=== PATIENT | female | born 1960 | race Caucasian/White ===

== ENCOUNTER 2019-09-11 14:13 | Outpatient (CLI) | payer BC, SELFPAY ==
--- NOTE | ~2019-09-11 | MM_ITS ---
EXAMINATION: MM screening [facility] BI w pb HISTORY: Screening mammogram TECHNIQUE: Craniocaudal and mediolateral oblique 3-D tomosynthesis images were obtained and synthetic 2-D images were generated. CAD analysis was submitted and interpreted. COMPARISON: 09/02/2018, 08/31/2017, 08/29/2016 BREAST PARENCHYMAL COMPOSITION: There are scattered areas of fibroglandular density. FINDINGS: There is no evidence of suspicious mass, calcification, or architectural distortion to sugg est malignancy in either breast. There has been no suspicious interval change. IMPRESSION: 1. No mammographic evidence of malignancy. 2. Recommend routine screening mammography in one year. BI-RADS Category 1: Negative Reviewed, dictated and finalized at location A. THOUSE KEEPER
== END 2019-09-11 14:14 | disposition home or self-care (01) ==
LOC: ANHIMG 14:15
PROVIDERS: PCP Family Medicine; Visit Provider Obstetrics & Gynecology
DX: Z12.31 Encounter for screening mammogram for malignant neoplasm of breast (principal)
CPT/HCPCS: 77063; 77067

== ENCOUNTER → 2020-06-10 13:26 | Outpatient (CLI) | payer BC, SELFPAY ==
--- NOTE | ~2020-06-10 | XR_ITS ---
EXAMINATION: XR chest 2V EXAM DATE: 06/10/2020 13:41 INDICATION: Midsternal chest pain. TECHNIQUE: Frontal and lateral projections of the chest obtained and reviewed. Comparison is made to prior examination from 05/25/2019. FINDINGS: The lungs are clear. There are no pleural effusions. The cardiomediastinal silhouette is within normal limits. There is no pneumothorax suspected. Moderate-sized mid thoracic endplate oste ophytes. There is aortic arteriosclerosis. IMPRESSION: No acute cardiopulmonary findings. Reviewed, dictated and finalized at location A. CH ANALYST
== END ==
PROVIDERS: PCP Family Medicine; Visit Provider Physician Assistant
DX: R07.89 Other chest pain (principal)
CPT/HCPCS: 71046

== ENCOUNTER 2020-09-14 10:15 | Outpatient (CLI) | payer BC, SELFPAY ==
--- NOTE | ~2020-09-14 | MM_ITS ---
EXAMINATION: MM screening [facility] BI w pb HISTORY: Screening mammogram TECHNIQUE: Craniocaudal and mediolateral oblique 3-D tomosynthesis images were obtained and synthetic 2-D images were generated. CAD analysis was submitted and interpreted. COMPARISON: 09/11/2019, 09/02/2018, 08/31/2017 BREAST PARENCHYMAL COMPOSITION: There are scattered areas of fibroglandular density. FINDINGS: There is no evidence of suspicious mass, calcification, or architectural distortion to sugg est malignancy in either breast. There has been no suspicious interval change. IMPRESSION: 1. No mammographic evidence of malignancy. 2. Recommend routine screening mammography in one year. BI-RADS Category 1: Negative Reviewed, dictated and finalized at location A. MENT PREPARATION SPECIALIST
== END 2020-09-14 10:16 | disposition home or self-care (01) ==
LOC: ANHIMG 10:20
PROVIDERS: PCP Family Medicine; Visit Provider Obstetrics & Gynecology
DX: Z12.31 Encounter for screening mammogram for malignant neoplasm of breast (principal)
CPT/HCPCS: 77063; 77067

== ENCOUNTER 2020-11-04 09:31 | Outpatient (CLI) | payer BC, SELFPAY | END 2020-11-04 09:32 | disposition home or self-care (01) | LOC: ANHCOVIDVC 09:31 | PROVIDERS: PCP Family Medicine | DX: Z23 Encounter for immunization (principal) | CPT/HCPCS: 0001A; 91300 ==

== ENCOUNTER 2020-11-25 09:34 | Outpatient (CLI) | payer BC, SELFPAY | END 2020-11-25 09:35 | disposition home or self-care (01) | LOC: ANHCOVIDVC 09:35 | PROVIDERS: PCP Family Medicine | DX: Z23 Encounter for immunization (principal) | CPT/HCPCS: 0002A; 91300 ==

== ENCOUNTER 2021-06-28 01:25 | Day surgery (SDC) | payer BC, SELFPAY ==
[2021-06-09 14:22] VITALS: BMI 44.2
[2021-06-28 07:25] VITALS: BP 139/72; PULSE 71; RESP 16; TEMP 35.8; O2SAT 96; BMI 44.2
[2021-06-28 07:34] LABS: Glucose Point of Care 135 mg/dl (65-105)
[2021-06-28] MEDS: LACTATED RINGERS 1,000 ML 150 ML IV CONT (07:40)
--- NOTE | 2021-06-28 07:47 | WPDANESEPPF ---
Anes - Initial Pre Proc Eval Procedure: Operation Date: 06/28/21 08:30 Proposed Procedures p Screening Colonoscopy - Guido Torres MD Date/Time: 06/28/21 07:47 Surgeon: Guido Torres MD Pre Op Diagnosis: neoplasm screening, hx of colon polyps Patient Data Age: 60 Gender: F Height: 1.75 m Weight: 136 kg Last Vital Signs Temp 35.8 C L 06/28/21 07:25 Pulse 71 06/28/21 07:25 Resp 16 06/28/21 07:25 BP 139/72 06/28/21 07:25 Pulse Ox 96 06/28/21 07:25 Allergies Allergy/AdvReac Type Severity Reaction Status Date / Time Penicillins Allergy Unknown Anaphylaxis Verified 06/28/21 07:23 phenazopyridine Allergy Unknown Weakness Verified 06/28/21 07:23 Sulfa (Sulfonamide Allergy Unknown Other Verified 06/28/21 07:23 Antibiotics) doxycycline AdvReac Intermediate Chest Pain Verified 06/28/21 07:23 Home Medications Medication Instructions Recorded Confirmed Type Saccharomyces boulardii [Florastor] 250 mg PO BID 05/25/19 06/09/21 History Vitamin D3 05/25/19 History estradiol 1 g VAGINAL 2XW 05/25/19 06/09/21 History irbesartan-hydrochlorothiazide 1 tablet PO DAILY 05/25/19 06/09/21 History metformin See Rx Instructions .ROUTE .COMPLEX 05/25/19 06/09/21 History sertraline 100 mg PO DAILY 05/25/19 06/09/21 History levothyroxine 50 mcg PO DAILY 06/09/21 06/28/21 History semaglutide [Ozempic] 0.25 mg SUBCUT WEEKLY 06/09/21 06/09/21 History Laboratory Tests 06/28/21 07:31 POC Capillary Glucose 135 mg/dl H mg/dl (65-105) Patient hx anesthesia problems: none Family hx anesthesia problems: none Results Review: All pre-operative results and documents have been reviewed as part of the pre-operative evaluation. [facility] Past Medical History Medical History (Updated 06/28/21 @ 08:52 by Guido Torres MD) Colon polyp Hyperlipidemia Hypertension Hypothyroidism Type 2 diabetes mellitus Surgical History Surgical History (Updated 05/25/19 @ 11:30 by Gwendolyn Baekr) History of appendectomy History of bladder surgery bladder sling History of section History of hysterectomy partial Hx of cholecystectomy Hx of tonsillectomy Family History Family History (Updated 02/19/17 @ 14:27 by DOCTOR UNKNOWN) Mother Patient's mother is , Onset Age: 65 Family history of type 2 diabetes mellitus Social History Social History (Updated 05/25/19 @ 11:31 by Gwendolyn Baker) Smoking packs per day: 1 Smoking cigarettes per day: 20.0 Years smoked: 20 Smoking pack-years: 20.00 Smoking status: Former smoker Tobacco type: cigarettes Smoking end date: 07/23/97 Alcohol intake: current Alcohol use details: social Substance use: never Living arrangements: with family Spiritual care concerns: No Anes - Eval Final PreProcedure Day of Procedure 06/28/21 07:47 Patient weight: morbidly obese Heart: regular rate and rhythm Lungs: clear to auscultation and normal air movement Airway: Mallampati scale class II Neurological: alert and oriented Last oral intake: >/= 8 hours ASA classification: III Emergent: no Anesthetic plan: proceed Anesthesia type and monitoring: general GIVS and standard monitoring Results Review: All pre-operative results and documents have been reviewed as part of the pre-operative evaluation. Informed Consent: The patient's anesthetic plan and its attendant risks and benefits were discussed with the patient/family/POA. Questions were solicited and answers provided to the satisfaction of the patient/family/POA.
--- NOTE | 2021-06-28 08:52 | PM.HPGS ---
History of Present Illness History of Present Illness Consent: Risks, benefits, and alternatives have been discussed and questions answered. Patient agrees to proceed with procedure. Chief complaint: neoplasm screening, hx of colon polyps Narrative: Leanna Glover is a 60 year old female with colon polyp 5 years ago. Review of Systems Constitutional: Constitutional: Denies headache(s) and Denies weakness Eyes: Eyes: Denies blurry vision ENT: Reports Normal hearing present, Denies headache(s) and Denies neck pain Cardiovascular: Cardiovascular: Denies chest pain and Denies dyspnea Respiratory: Respiratory: Denies dyspnea Gastrointestinal: Gastrointestinal: Reports no additional gastrointestinal complaints Genitourinary: Genitourinary: Denies dysuria Musculoskeletal: Musculoskeletal: Denies neck pain Integumentary/Breasts: Skin/Breast: Denies dry skin Neurologic: Reports Normal hearing present, Denies headache(s) and Denies weakness Psychiatric: Psychiatric: Denies anxiety Endocrine: Endocrine: Denies change in body appearance Hematologic/Lymphatic: Hematologic/Lymphatic: Denies easy bleeding Allergic/Immunologic: Allergic/Immunologic: Denies urticaria PMFSH Past Medical History Medical History (Updated 06/28/21 @ 08:52 by Guido Torres MD) Colon polyp Hyperlipidemia Hypertension Hypothyroidism Type 2 diabetes mellitus Surgical History Surgical History (Updated 05/25/19 @ 11:30 by Gwendolyn Baker) History of appendectomy History of bladder surgery bladder sling History of section History of hysterectomy partial Hx of cholecystectomy Hx of tonsillectomy Family History Family History (Updated 02/19/17 @ 14:27 by DOCTOR UNKNOWN) Mother Patient's mother is , Onset Age: 65 Family history of type 2 diabetes mellitus Social History Social History (Updated 05/25/19 @ 11:31 by Gwendolyn Baker) Smoking packs per day: 1 Smoking cigarettes per day: 20.0 Years smoked: 20 Smoking pack-years: 20.00 Smoking status: Former smoker Tobacco type: cigarettes Smoking end date: 07/23/97 Alcohol intake: current Alcohol use details: social Substance use: never Living arrangements: with family Spiritual care concerns: No Meds Home Medications and Allergies Home Medications Medication Instructions Recorded Confirmed Type Saccharomyces boulardii [Florastor] 250 mg PO BID 05/25/19 06/09/21 History Vitamin D3 11/03/19 History estradiol 1 g VAGINAL 2XW 05/25/19 06/09/21 History irbesartan-hydrochlorothiazide 1 tablet PO DAILY 05/25/19 06/09/21 History metformin See Rx Instructions .ROUTE .COMPLEX 05/25/19 06/09/21 History sertraline 100 mg PO DAILY 05/25/19 06/09/21 History levothyroxine 50 mcg PO DAILY 06/09/21 06/28/21 History semaglutide [Ozempic] 0.25 mg SUBCUT WEEKLY 06/09/21 06/09/21 History Allergies Allergy/AdvReac Type Severity Reaction Status Date / Time Penicillins Allergy Unknown Anaphylaxis Verified 06/28/21 07:23 phenazopyridine Allergy Unknown Weakness Verified 06/28/21 07:23 Sulfa (Sulfonamide Allergy Unknown Other Verified 06/28/21 07:23 Antibiotics) doxycycline AdvReac Intermediate Chest Pain Verified 06/28/21 07:23 Vital Signs Vital Signs - 24 hr 06/28/21 07:25 Temperature 96.4 F L Pulse Rate 71 Respiratory Rate 16 Blood Pressure 139/72 Pulse Oximetry 96 Exam Const: General: comfortable and no acute distress HENMT: General nose exam: Normal nares present Eyes: General: appearance normal, both eyes and all related structures Neck: Neck: no JVD Resp: Auscultation: clear to auscultation bilaterally Cardio: Rate: regular rate Rhythm: regular rhythm GI: Inspection: non-distended GI Palp: Yes Soft to palpation Skin: General skin exam: normal color Neuro: General: gait normal Speech: normal speech Extrem: General: normal to inspection Psych: Mental Status: menta
[2021-06-28 09:19] VITALS: BP 103/57; PULSE 63; RESP 17; O2SAT 96
[2021-06-28 09:29] VITALS: BP 117/67; PULSE 64; RESP 18; O2SAT 96
[2021-06-28 09:39] VITALS: BP 117/93; PULSE 62; RESP 26; O2SAT 99
== END 2021-06-28 09:52 | disposition home or self-care (01) ==
PROVIDERS: PCP Family Medicine; Visit Provider Internal Medicine Gastroenterology
PROC: 0DJD8ZZ Inspection of Lower Intestinal Tract, Via Natural or Artificial Opening Endoscopic (ICD-10-PCS; CPT 45378; principal; 2021-06-28 08:30)
DX: Z12.11 Encounter for screening for malignant neoplasm of colon (principal); D12.8 Benign neoplasm of rectum; K57.30 Diverticulosis of large intestine without perforation or abscess without bleeding; K64.8 Other hemorrhoids; E11.9 Type 2 diabetes mellitus without complications; Z79.84 Long term (current) use of oral hypoglycemic drugs; Z79.899 Other long term (current) drug therapy; Z87.891 Personal history of nicotine dependence; E66.01 Morbid (severe) obesity due to excess calories; Z68.41 Body mass index [BMI] 40.0-44.9, adult
CPT/HCPCS: 45380; 82948; 88305; J2704; J7120

== ENCOUNTER 2021-10-04 15:04 | Outpatient (CLI) | payer BC, SELFPAY ==
--- NOTE | ~2021-10-04 | MM_ITS ---
EXAMINATION: MM screening [facility] BI w pb HISTORY: Screening mammogram TECHNIQUE: Craniocaudal and mediolateral oblique 3-D tomosynthesis images were obtained and synthetic 2-D images were generated. CAD analysis was submitted and interpreted. COMPARISON: 09/14/2020, 09/11/2019, 09/02/2018 BREAST PARENCHYMAL COMPOSITION: There are scattered areas of fibroglandular density. FINDINGS: There is no suspicious mass, calcification, or architectural distortion to suggest malignan cy in either breast. There has been no suspicious interval change. IMPRESSION: 1. No mammographic evidence of malignancy. 2. Recommend routine screening mammography in one year. BI-RADS Category 1: Negative Reviewed, dictated and finalized at location A.
== END 2021-10-04 15:05 | disposition home or self-care (01) ==
PROVIDERS: PCP Family Medicine; Visit Provider Obstetrics & Gynecology Gynecology
DX: Z12.31 Encounter for screening mammogram for malignant neoplasm of breast (principal)
CPT/HCPCS: 77063; 77067

== ENCOUNTER → 2022-01-11 13:04 | Outpatient (CLI) | payer BC, SELFPAY ==
--- NOTE | ~2022-01-11 | DEXA_ITS ---
Bone Density Report Name: ALE RODRÍGUEZ Age: 61 Sex: Female Ethnicity: White Date of : 1960 Indication: postmenopausal; screening for osteoporosis; hysterectomy; Referring Provider: DELFINO FLEMING Study: Bone densitometry was performed. Exam Date: January 11, 2022 Accession number: [id number] Bone Density: Region BMD T-score Z-score Classification AP Spine (L1-L4) 1.258 1.9 3.5 Normal Femoral Neck (Left) 0.815 -0.3 1.1 Normal Total Hip (Left) 1.085 1.2 2.2 Normal Femoral Neck (Right) 0.913 0.6 2.0 Normal Total Hip (Right) 1.065 1.0 2.1 Normal Total Hip Mean 1.075 1.1 2.2 Normal World Health Organization criteria for BMD impression classify patients as: Normal (T-score at or above -1.0), Osteopenia (T-score between -1.0 and -2.5), or Osteoporosis (T-score at or below -2.5). 10-year Fracture Risk: FRAX not reported because: All T-scores for Spine Total, Hip Total, Femoral Neck at or above -1.0 Clinical Information Provided by Patient: Has used the following medications: Vitamin D Has the following medical conditions: Hysterectomy Patient maximum height was 68.25 Menopause Age: 45 No regular weight bearing exercise Drinks caffeinated beverages Onset of menses at age 10 Number of children 1 Impression: The patient has normal bone mass. Discussion: BONE DENSITY IS ABOVE THE MINIMUM DESIRABLE LEVEL AT ALL SKELETAL SITES TESTED. This patient?s bone mineral density is above the minimum desirable level (T-score -1.0 or better) at all sites measured. The patient should follow a healthful lifestyle (good nutrition with adequate calcium and vitamin D, and appropriate weight-bearing exercise). Follow-Up: Consider repeating this study in 5 years or sooner if there is some new clinical indication. Reported by: MOOK on 01/11/2022 1:26:00 PM. Reviewed, dictated and finalized at location ABrad LAMBERT
== END ==
PROVIDERS: PCP Family Medicine; Visit Provider Obstetrics & Gynecology Gynecology
DX: Z78.0 Asymptomatic menopausal state (principal)
CPT/HCPCS: 77080

== ENCOUNTER → 2022-10-25 12:24 | Outpatient (CLI) | payer BC, SELFPAY ==
--- NOTE | ~2022-10-25 | XR_ITS ---
EXAM: XR knee RT 3V DATE: 10/25/2022 12:59 HISTORY: M25.561 - Pain in right knee . COMPARISON: None available. FINDINGS: Normal mineralization. No fracture or dislocation. No lytic or blastic lesion. Severe medi al joint space narrowing. Moderate tricompartmental osteophytosis. Large posterior tibial osteophyte. Small volume joint fluid. No erosion or periosteal change. Soft tissues within normal limits. IMPRESSION: Tricompartmental right knee osteoarthritis, severe in the medial compartment. Reviewed, dictated and finalized at location K. IMPRESSION: Tricompartmental right knee osteoarthritis, severe in the medial co mpartment.
== END ==
PROVIDERS: PCP Family Medicine; Visit Provider Physician Assistant
DX: M17.11 Unilateral primary osteoarthritis, right knee (principal); M25.561 Pain in right knee
CPT/HCPCS: 73562

== ENCOUNTER 2022-11-10 15:18 | Outpatient (CLI) | payer BC, SELFPAY ==
--- NOTE | ~2022-11-10 | MM_ITS ---
EXAMINATION: MM screening [facility] BI w pb HISTORY: Screening mammogram TECHNIQUE: Craniocaudal and mediolateral oblique 3-D tomosynthesis images were obtained and synthetic 2-D images were generated. CAD analysis was submitted and interpreted. COMPARISON: 10/04/2021, 09/14/2020, 09/11/2019 BREAST PARENCHYMAL COMPOSITION: There are scattered areas of fibroglandular density. FINDINGS: No suspicious mass, calcification, or architectural distortion are identified in either mayra ast to suggest malignancy. There has been no suspicious interval change. IMPRESSION: 1. No mammographic evidence of malignancy. 2. Recommend routine screening mammography in one year. BI-RADS Category 1: Negative Reviewed, dictated and finalized at location A.
== END 2022-11-10 15:19 | disposition home or self-care (01) ==
PROVIDERS: PCP Family Medicine; Visit Provider Obstetrics & Gynecology Gynecology
DX: Z12.31 Encounter for screening mammogram for malignant neoplasm of breast (principal)
CPT/HCPCS: 77063; 77067

== ENCOUNTER 2023-11-22 11:29 | Outpatient (CLI) | payer BC, SELFPAY ==
--- NOTE | ~2023-11-22 | MM_ITS ---
EXAMINATION: MM screening [facility] BI w pb HISTORY: Screening mammogram TECHNIQUE: Craniocaudal and mediolateral oblique 3-D tomosynthesis images were obtained and synthetic 2-D images were generated. CAD analysis was submitted and interpreted. COMPARISON: November 10, 2022, October 04, 2021 screening mammogram examinations BREAST PARENCHYMAL COMPOSITION: There are scattered areas of fibroglandular density. FINDINGS: There is no evidence of suspicious mass, calcification, or architectural distortion to sugg est malignancy in either breast. There has been no suspicious interval change. IMPRESSION: 1. No mammographic evidence of malignancy. 2. Recommend routine screening mammography in one year. BI-RADS Category 1: Negative Reviewed, dictated and finalized at location A.
== END 2023-11-22 11:30 ==
LOC: MICIMG 11:30
PROVIDERS: PCP Obstetrics & Gynecology Gynecology; Visit Provider Obstetrics & Gynecology Gynecology
DX: Z12.31 Encounter for screening mammogram for malignant neoplasm of breast (principal)
CPT/HCPCS: 77063; 77067

== ENCOUNTER 2024-11-24 15:15 | Outpatient (CLI) | payer BC, SELFPAY ==
--- NOTE | ~2024-11-24 | MM_ITS ---
EXAMINATION: MM screening [facility] BI w pb HISTORY: Screening TECHNIQUE: Craniocaudal and mediolateral oblique 3-D tomosynthesis images were obtained and synthetic 2-D images were generated. CAD analysis was submitted and interpreted. COMPARISON: Comparison to multiple prior studies sequentially, with oldest reviewed study dated 09/02. BREAST PARENCHYMAL COMPOSITION: Not dense: There are scattered areas of fibroglandular density. FINDINGS: There is no evidence of suspicious mass, calcification, or architectural distortion to sugg est malignancy in either breast. There has been no suspicious interval change. IMPRESSION: 1. No mammographic evidence of malignancy. 2. Recommend routine screening mammography in one year. BI-RADS Category 1: Negative Reviewed, dictated and finalized at location A.
== END 2024-11-24 15:16 | disposition home or self-care (01) ==
PROVIDERS: PCP Family Medicine; Visit Provider Obstetrics & Gynecology Gynecology
DX: Z12.31 Encounter for screening mammogram for malignant neoplasm of breast (principal)
CPT/HCPCS: 77063; 77067

== ENCOUNTER 2025-05-26 10:56 | Outpatient (CLI) | payer MEDICARE, SELFPAY ==
--- OUTSIDE RECORDS SUMMARY | 2025-05-25 14:20 | XMS_ITS | Encounter Summary ---
Author Organization [facility] Address [address] [place] [address] Phone Care Team Providers Care Color Maker Formulator Name Role Phone Michael Velarde DO Unavailable [phone] Rachel Liu APRN, [facility] Primary Care Provider [phone] Reason for Visit * Reason Comments Blood Pressure Check Encounter Details Date Type Department Care Team (Latest Contact Info) Description 05/25/2025 2:20 PM ENVIRONMENTAL SERVICES FLOOR TECH Clinical Support [facility] - [facility] - [place] [address] [place] [address] JUANITA-inhibitor cough (Primary Dx) Discharge Disposition: Discharged to home or Selfcare Social History Tobacco Use Types Packs/Day Years Used Date Smoking Tobacco: Former Cigarettes 1.5 20 0 12/06/1977 - 12/06/1997 Smokeless Tobacco: Never Alcohol Use Standard Drinks/Week Comments Yes 2 (1 standard drink = 0.6 oz pur e alcohol) Rare [facility] Utilities Answer Date Recorded In the past 12 months has [employer], gas, oil, or water [employer] threatened to shut off services in your home? No 12/04/2024 Social Connection and Isolation Panel Answer Date Recorded In a typical week, how many times do you talk on the phone with family, friends, or neighbors? Three times a week 12/04/2024 How often do you get togethe r with friends or relatives? Once a week 12/04/2024 How often do you attend [facility] or church services? Never 12/04/2024 Do you belong to any clubs o r organizations such as muslim groups, unions, fraternal or athletic groups, or school groups? No 12/04/2024 How often do you attend meet ings of the clubs or organizations you belong to? Never 12/04/2024 Are you , , di vorced, , never , or living with a partner? 12/04/2024 AUDIT-C Answer Date Recorded Q1: How often do you have a drink containing alc ohol? Monthly or less 12/04/2024 Q2: How many drinks containi ng alcohol do you have on a typical day when you are drinking? 1 or 2 12/04/2024 Q3: How often do you have si x or more drinks on one occasion? Never 12/04/2024 Overall Financial Resource Strain (CARDIA) Answe r Date Recorded How hard is it for you to pa y for the very basics like food, housing, medical care, and heating? Not hard at all 12/04/2024 PHQ-2 Answer Date Recorded Total Score - Questions 1-9 0 03/23 [employer] of Occupat ional Health - Occupational Stress Questionnaire Answer Date Recorded Do you feel stress - tense, restless, nervous, or anxious, or unable to sleep at night because your mind is troubled all the time - these days? Only a little 12/04/2024 Exercise Vital Sign Answer Date Recorde d On average, how many days pe r week do you engage in moderate to strenuous exercise (like a brisk walk)? 2 days 12/04/2024 On average, how many minutes do you engage in exercise at this level? 20 min 12/04/2024 Hunger Vital Sign Answer Date Recorded Within the past 12 months, y ou worried that your food would run out before you got the money to buy more. Never true 12/05/19 Within the past 12 months, t he food you bought just didn't last and you didn't have money to get more. Never true 12/04/2024 PRAPARE - Transportation Answer Date Re corded In the past 12 months, has l ack of transportation kept you from medical appointments or from getting medications? No 11/20 In the past 12 months, has l ack of transportation kept you from meetings, work, or from getting things needed for daily living? No 12/04/2024 Housing Stability Vital Sign Answer Ivan e Recorded In the last 12 months, was t here a time when you were not able to pay the mortgage or rent on time? No 12/04/2024 In the past 12 months, how m any times have you moved where you were living? 0 12/04/2024 At any time in the past 12 m onths, were you homeless or living in a detention (including now)? 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 Not on file Not on angie e documented as of this encounter Last Filed Vital Signs Vital Sign Reading Time Taken Comments Blood Pressure 136/72 05/25/2025 2:22 PM ENVIRONMENTAL SERVICES FLOOR TECH Pulse 78 05/25/2025 2:22 PM ENVIRONMENTAL SERVICES FLOOR TECH Temperature - - Respiratory Rate 18 05/25/2025 2:22 PM ENVIRONMENTAL SERVICES FLOOR TECH Oxygen Saturation 97% 05/25/2025 2:22 PM ENVIRONMENTAL SERVICES FLOOR TECH Inhaled Oxygen Concentration - - Weight - - Height - - Body Mass Index - - documented in this encounter Progress Notes * Jose E Mcgee RN - 05/25/2025 2:20 PM CST Vitals: 05/25/25 1422 BP: 136/72 BP Location: Right Arm BP Position: Sitting BP Cuff Size: Regular Pulse: 78 Resp: 18 SpO2: 97% HPI: Patient presents today for blood pressure check for home blood pressure monitor comparison Notify provider of any positive findings. Chest pain: No Pain rating: Headache: No Pain rating: Confusion: No Drowsiness: No Difficulty breathing: No Dizziness: Yes / Details: since end march Duration: see abouve Orthostatic B/P's: Cough: Yes / Details: at night from lisinopril Duration: since starting lisinopril Feet swelling: No Nausea/vomiting: No Palpitations: No Blurred vision: No Bloody nose: No Tingling hands/feet: No Blood tinged sputum: No Fatigue: No Blood in urine: No Ringing in the ear(s): No GI disturbance: No Leg cramps: No Sexual dysfunction: No Hearing problems: No Rash: No Irregular heart rate: No Other: No Urine output: unchanged Are there concerns with medications? no Are refills needed? no Compliance with medications? yes Current Medications[1] Is patient monitoring their BP at home? yes If yes: 130s/60s Assessment: Notify physician of any positive findings. Lethargic: no Difficulty breathing: no Edema: no Skin color: good Appetite: good Fluid intake: good Other: none [1] Current Outpatient Medications Medication Sig Dispense Refill albuterol 108 (90 Base) MCG/ACT Aerosol Solution take 2 Puffs by inhalation every 6 hours as neededfor Cough. 6.7 g 0 Cholecalciferol (Vitamin D-3 Super Strength) 50 mcg Tablet Take by mouth. estradiol (ESTRACE) 0.1 MG/GM Cream 2 g by Vaginal route daily. levothyroxine (SYNTHROID) 50 MCG Tablet Take 1 Tablet by mouth daily. 90 Tablet 0 losartan-hydrochlorothiazide (HYZAAR) 100-12.5 MG Tablet Take 1 Tablet by mouth daily. 30 Tablet 0 meclizine (ANTIVERT) 25 MG Tablet Take 1 Tablet by mouth 3 times daily as needed for Dizziness. Indications: Sensation of Spinning or Whirling 30 Tablet 0 meloxicam (MOBIC) 15 MG Tablet Take 1 Tablet by mouth daily. 30 Tablet 2 metFORMIN (GLUCOPHAGE-XR) 500 MG TABLET SR 24 HR TAKE 1 TABLET BY MOUTH TWICE DAILY 180 Tablet 1 Multiple Vitamin (MULTI-VITAMIN PO) Take by mouth. ondansetron (ZOFRAN) 4 MG Tablet Take 1 Tablet by mouth every 8 hours as needed for Nausea - 1st line. Indications: Nausea and Vomiting 10 Tablet 0 Ozempic, 0.25 or 0.5 MG/DOSE, 2 MG/3ML Solution Pen-injector 0.5 mg by Subcutaneous route once a week. Patient takes 0.5 mg Weekly Indications: Type 2 Diabetes 9 mL 0 Probiotic Product (Snapflow PO) Take by mouth daily. rosuvastatin (CRESTOR) 5 MG Tablet TAKE 1 TABLET BY MOUTH 3 TIMES A WEEK 36 Tablet 0 sertraline (ZOLOFT) 100 MG Tablet Take 1 Tablet by mouth daily. 90 Tablet 1 No current facility-administered medications for this visit. RONMENTAL SERVICES FLOOR TECH * Jose E Mcgee RN - 05/25/2025 2:20 PM CST Per PCP, keep followup with her and take BP daily and log it in [employer]. No med changes at this time. Pt requested cough medication, per PCP send in Tessalon Pearls TID PRN 100mg. Order sent and pt notified and verbalized understanding RONMENTAL SERVICES FLOOR TECH documented in this encounter Plan of Treatment Upcoming Encounters Date Type Department Care Team (Late st Contact Info) Description 06/05/2025 4:00 PM ENVIRONMENTAL SERVICES FLOOR TECH Office Visit [facility] [place] [address] [place] [address] Rachel Liu CYBER TRANSPORT SYSTEMS SPECIALIST, MORTGAGE FUNDER [address] [place] [address] 07/31/2025 8:40 AM ENVIRONMENTAL SERVICES FLOOR TECH Lab [facility] [place] [address] [address] 08/07/2025 1:30 PM ENVIRONMENTAL SERVICES FLOOR TECH Office Visit [facility] [place] [address] [place] [address] Rachel Liu APRN, MORTGAGE FUNDER [address] [place] [address] documented as of this encounter Goals Goal Patient Goal Type Associated Problems Recent Progress Patient-Stated? Author Help patient manage hypertension Care Plan [facility] HYPERTENSION CONCERN (PATIENT NOT ON HIGH BLOOD PRESSURE MEDICATIONS) No Jose E Mcgee RN documented as of this encounter Visit Diagnoses Diagnosis JUANITA-inhibitor cough- Primary Cough documented in this encounter Additional Health Concerns Active Problems Noted Date Diagnosed Date [facility] HYPERTENSION CONCERN (P ATIENT NOT ON HIGH BLOOD PRESSURE MEDICATIONS) 05/25/2025 Assessment Noted Time PHQ-9 Depression Total Score: 0 04/07/20 1:07 PM CDT documented as of this encounter Care Teams Color Maker Formulator Relationship Specialty Start Date End Date Rachel Liu, CYBER TRANSPORT SYSTEMS SPECIALIST, MORTGAGE FUNDER [address] [place] [address] PCP - General Certified Nurse Practitioner 12/05/24 Michael Velarde DO Consulting Physician Gastroenterology 12/02/15 documented as of this encounter
--- OUTSIDE RECORDS SUMMARY | 2025-05-26 12:58 | XMS_ITS | Encounter Summary ---
Author Organization [facility] Address [address] [place] [id number] Phone Care Team Providers Care Spiral Gear Generator Name Role Phone Michael Velarde DO Unavailable [phone] Rachel Liu APRN, SHOE MAKER Primary Care Provider [phone] Reason for Visit * Reason Onset Date Comments Medication Refill 05/25/2025 Encounter Details Date Type Department Care Team (Late st Contact Info) Description 05/25/2025 [facility] [place] [address] [place] [address] Rachel Liu, YURY, SHOE MAKER [address] [place] [address] Medication Renewal Reviewed Social History Tobacco Use Types Packs/Day Years Used Date Smoking Tobacco: Former Cigarettes 1.5 20 0 12/06/1977 - 12/06/1997 Smokeless Tobacco: Never Alcohol Use Standard Drinks/Week Comments Yes 2 (1 standard drink = 0.6 oz pur e alcohol) Rare [facility] Utilities Answer Date Recorded In the past 12 months has [employer], gas, oil, or water company threatened to shut off services in your home? No 12/04/2024 Social Connection and Isolation Panel Answer Date Recorded In a typical week, how many times do you talk on the phone with family, friends, or neighbors? Three times a week 12/04/2024 How often do you get togethe r with friends or relatives? Once a week 12/04/2024 How often do you attend chur ch or orthodox services? Never 12/04/2024 Do you belong to any clubs o r organizations such as denominational groups, unions, fraternal or athletic groups, or [...] Total Score - Questions 1-9 0 03/23 [facility] of Occupat ional Health - Occupational Stress [...] money to buy more. Never true 12/05/19 25 Within the past 12 months, t he [...] any time in the past 12 m [facility], were you homeless or living in a senior living (including now)? 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 Requested Prescriptions Pending Prescriptions Disp Refills sertraline (ZOLOFT) 100 MG Tablet 90 Tablet 1 Sig: Take 1 Tablet by mouth daily. SSRI (6 Month Refill Only) Protocol Failed - 05/25/2025 9:10 AM Failed - Patient has established therapy with SSRI for at least 6 months Passed - Visit with relevant provider in past 6 months or upcoming 90 days Recent Visits Date Type Provider Dept 05/07/25 Office Visit Rachel Liu APRN, SHOE MAKER [facility] 04/07/25 Office Visit Rachel Liu APRN, SHOE MAKER [facility] 12/05/24 Office Visit Rachel Liu APRN, SHOE MAKER [facility] Showing recent visits within past 182 days and meeting all other requirements Future Appointments Date Type Provider Dept 06/05/25 Appointment Rachel Liu APRN, YONATAN [facility] 08/07/25 Appointment Rachel Liu APRN, YONATAN [facility] Showing future appointments within next 90 days and meeting all other requirements Passed - Has an encounter in the past 6 months with a depression, anxiety, adjustment disorder, OCD, or PTSD visit diagnosis ARY CLERICAL ASSISTANT documented in this encounter Plan of Treatment Upcoming Encounters Date Type Department Care Team (Late st Contact Info) Description 06/05/2025 4:00 PM LIBRARY CLERICAL ASSISTANT Office Visit [facility] [place] [address] [place] [address] Rachel Liu APRN, YONATAN [address] [place] [address] 07/31/2025 8:40 AM LIBRARY CLERICAL ASSISTANT Lab [facility] [place] [address] [place] [address] 08/07/2025 1:30 PM LIBRARY CLERICAL ASSISTANT Office Visit [facility] [place] [address] [place] [address] Rachel Liu APRN, YONATAN [address] [place], [place] [id number] documented as of this encounter Goals Goal Patient Goal Type Associated Problems Recent Progress Patient-Stated? Author Help patient manage hypertension Care Plan [facility] HYPERTENSION CONCERN (PATIENT NOT ON HIGH BLOOD PRESSURE MEDICATIONS) Jose E Tatum RN documented as of this encounter Visit Diagnoses Not on filedocumented in this encounter Additional Health Concerns Active Problems Noted Date Diagnosed Date [facility]P HYPERTENSION CONCERN (P ATIENT NOT ON HIGH BLOOD PRESSURE MEDICATIONS) 05/25/2025 Assessment Noted Time PHQ-9 Depression Total Score: 0 04/07/20 25 1:07 PM CDT documented as of this encounter Care Teams Spiral Gear Generator Relationship Specialty Start Date End Date Rachel Liu, SERVICE COUNSELOR, SHOE MAKER [address] [place] [address] PCP - General Certified Nurse Practitioner 12/05/24 Michael Velarde DO Consulting Physician Gastroenterology 12/02/15 documented as of this encounter
--- OUTSIDE RECORDS SUMMARY | 2025-05-26 12:58 | XMS_ITS | Encounter Summary ---
Author Organization [facility] Care Team Providers Care Autocad Technician Name Role Phone Michael Velarde DO Unavailable Rachel Liu APRN, ORACLE IDENTITY MANAGEMENT CONSULTANT Primary Care Provider [phone] Encounter Details Date Type Department Care Team (Latest Contact Info) Description 05/25/2025 Travel Social History Tobacco Use Types Packs/Day Years Used Date Smoking Tobacco: Former Cigarettes 1.5 20 0 12/06/1977 - 12/06/1997 Smokeless Tobacco: Never Alcohol Use Standard Drinks/Week Comments Yes 2 (1 standard drink = 0.6 oz pur e alcohol) Rare [facility] Utilities Answer Date Recorded In the past 12 months has [employer], gas, oil, or water [employer] threatened to shut off services in your [...] often do you attend chur ch or baptist services? Never 12/04/2024 Do you belong to any clubs o r organizations such as anabaptist groups, unions, fraternal or athletic groups, or [...] Total Score - Questions 1-9 0 03/23 [facility] of Occupat ional Health - Occupational Stress [...] any time in the past 12 m [facility], were you homeless or living in a [facility] (including now)? 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 Not on angie e documented as of this encounter Plan of Treatment Upcoming Encounters Date Type Department Care Team (Late st Contact Info) Description 06/05/2025 4:00 PM RECENTERER Office Visit [facility] [place] [address] [place] [address] Rachel Liu APRN, ORACLE IDENTITY MANAGEMENT CONSULTANT [address] [place] [address] 07/31/2025 8:40 AM RECENTERER Lab [facility] [place] [address] [place] [address] 08/07/2025 1:30 PM RECENTERER Office Visit [facility] [place] [address] [place] [address] Rachel Liu APRN, ORACLE IDENTITY MANAGEMENT CONSULTANT [address] [place], [place] [id number] documented as of this encounter Goals Goal [...] documented as of this encounter Care Teams Autocad Technician Relationship Specialty Start Date End Date Rachel Liu, PHARMACY SPECIALIST, ORACLE IDENTITY MANAGEMENT CONSULTANT [address] [place] [address] PCP - General Certified Nurse Practitioner 12/05/24 Michael Velarde DO Consulting Physician Gastroenterology 12/02/15 documented as of this encounter
--- OUTSIDE RECORDS SUMMARY | 2025-05-26 12:58 | XMS_ITS | Encounter Summary ---
Author Organization [facility] Address [address] [place] [address] Phone Care Team Providers Care Review Analyst Name Role Phone Michael Velarde DO Unavailable [phone] Rachel Liu APRN, OCCUPATIONAL THERAPIST AIDE Primary Care Provider [phone] Encounter Details Date Type Department Care Team (Late st Contact Info) Description 12/22/2024 Telephone [facility] [address] [place] [address] Provider, None [place] Social History Tobacco Use Types Packs/Day Years Used Date Smoking Tobacco: Former Cigarettes 1.5 20 0 12/06/1977 - 12/06/1997 Smokeless Tobacco: Never Alcohol Use Standard Drinks/Week Comments Yes 2 (1 standard drink = 0.6 oz pur e alcohol) Rare [facility] Utilities Answer Date Recorded In the past 12 months has [employer], gas, oil, or water [employer] threatened to shut off services in your [...] often do you attend chur ch or yarsanism services? Never 12/04/2024 Do you belong to any clubs o r organizations such as pentecostalism groups, unions, fraternal or athletic groups, or [...] Recorded Total Score - Questions 1-9 0 11/20 [facility] of Occupat ional Health - Occupational [...] any time in the past 12 m [facility], were you homeless or living in a correction (including now)? 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 [place] [address] [place] [address] Rachel Liu, CONTINUITY COORDINATOR, OCCUPATIONAL THERAPIST AIDE [address] [place] [address] 07/31/2025 8:40 AM CLIENT OPERATIONS MANAGER Lab [facility] [place] [address] 08/07/2025 1:30 PM CLIENT OPERATIONS MANAGER [facility] [place] [address] Rachel Liu CONTINUITY COORDINATOR, OCCUPATIONAL THERAPIST AIDE [address] [place] [address] documented as of this encounter Visit Diagnoses Not on filedocumented in this encounter Additional Health Concerns Infection Onset Date Last Indicated Resolved Time Respiratory Rule-Out 05/04/2025 05/04/2025 025 5:09 PM CDT Assessment Noted Time PHQ-9 Depression Total Score: 0 12/06/19 2:48 PM CDT documented as of this encounter Care Teams Review Analyst Relationship Specialty Start Date End Date Rachel iLu, CONTINUITY COORDINATOR, OCCUPATIONAL THERAPIST AIDE [address] [place] [address] PCP - General Certified Nurse Practitioner 12/05/24 Michael Velarde DO Consulting Physician Gastroenterology 12/02/15 documented as of this encounter
--- OUTSIDE RECORDS SUMMARY | 2025-05-26 12:59 | XMS_ITS | Clinical Summary ---
Author Organization [facility] Address [address] [facility], [place] [address] Phone Care Team Providers Care Parts Counterperson Name Role Phone Michael Velarde DO Unavailable [phone] Rachel Liu APRN, HOSPITAL ADMISSIONS CLERK Primary Care Provider [phone] Allergies Active Allergy Reactions Criticality Noted Date Comments Penicillins Hives,Shortness of Breath,Rash High 12/07/2015 Phenazopyridine Shortness of Breath,Rash,Palpitations,Oth er (see Comments) High 12/07/2015 Dizzy [place] Extract Hives,Rash,Itching,Swelling High 12/03/2024 STRAWBERRY / Sulfa Antibiotics Shortness of Breath,Rash,Palpitations High 12/07/2015 Dizzy Medications Probiotic Product ([employer] PO) Take by mouth daily. Active Multiple Vitamin (MULTI-VITAMIN PO) Take by mouth. Activ e estradiol (ESTRACE) 0.1 MG/GM Cream 2 g by Vaginal route daily. Active Cholecalciferol (Vitamin D-3 Super Strength) 50 mcg Tablet Take by mouth. A ctive metFORMIN (GLUCOPHAGE-XR) 500 MG TABLET SR 24 HR TAKE 1 TABLET BY MOUTH TWICE DAILY 180 Tablet 1 02/07/20 25 Active Ozempic, 0.25 or 0.5 MG/DOSE, 2 MG/3ML Solution Pen-injectorInd ications:Type 2 Diabetes Mellitus 0.5 mg by Subcutaneous route once a week. Patient takes 0.5 mg Weekly Indications: Type 2 Diabetes 9 mL 02/20/20 25 Active levothyroxine (SYNTHROID) 50 MCG Tablet Take 1 Tablet by mouth daily. 90 Tablet 03/06/20 25 Active meloxicam (MOBIC) 15 MG Tablet Take 1 Tablet by mouth daily. 30 Tablet 2 03/06/20 25 Active meclizine (ANTIVERT) 25 MG TabletIndicatio ns:Vertigo Take 1 Tablet by mouth 3 times daily as needed for Dizziness. Indications: Sensation of Spinning or Whirling 30 Tablet 05/04/20 25 Active ondansetron (ZOFRAN) 4 MG TabletIndicatio ns:Nausea and Vomiting Take 1 Tablet by mouth every 8 hours as needed for Nausea - 1st line. Indications: Nausea and Vomiting 10 Tablet 05/04/20 25 Active albuterol 108 (90 Base) MCG/ACT Aerosol Solution take 2 Puffs by inhalation every 6 hours as needed for Cough. 6.7 g 05/04/20 25 Active rosuvastatin (CRESTOR) 5 MG Tablet TAKE 1 TABLET BY MOUTH 3 TIMES A WEEK 36 Tablet 05/13/20 25 Active losartan-hydroc hlorothiazide (HYZAAR) 100-12.5 MG Tablet Take 1 Tablet by mouth daily. 30 Tablet 05/22/20 25 Active sertraline (ZOLOFT) 100 MG Tablet Take 1 Tablet by mouth daily. 90 Tablet 1 05/25/20 25 Active benzonatate (TESSALON) 100 MG CapsuleIndicati ons:JUANITA-inhibit or cough Take 1 Capsule by mouth 3 times daily as needed for Cough for up to 10 days. 30 Capsule 05/25/20 25 025 Active sertraline (ZOLOFT) 100 MG Tablet TAKE 1 TABLET BY MOUTH EVERY DAY 90 Tablet 1 12/30/19 25 025 Discontinu ed(Reorder ) irbesartan (AVAPRO) 150 MG Tablet TAKE 1 TABLET BY MOUTH DAILY 90 Tablet 03/17/20 25 025 Discontinu ed(Therapy completed) rosuvastatin (CRESTOR) 5 MG Tablet TAKE 1 TABLET BY MOUTH 3 TIMES A WEEK 36 Tablet 03/24/20 25 025 Discontinu ed(Reorder ) doxycycline hyclate (VIBRA-TABS) 100 MG TabletIndicatio ns:Bacterial lower respiratory infection Take 1 Tablet by mouth 2 times daily for 10 days. 20 Tablet 10/08/20 25 10/18/2 025 Additional Information Patient not taking.Reported on 05/07/2025 azithromycin (ZITHROMAX) 250 MG Tablet Take 2 Tablets by mouth daily for 1 day, THEN 1 Tablet daily for 4 days. 6 Tablet 05/02/20 025 lisinopril-hydr oCHLOROthiazide (PRINZIDE, ZESTORETIC) 20-12.5 MG Tablet Take 1 Tablet by mouth daily. 90 Tablet 05/07/20 025 Discontinu ed(Therapy completed) losartan-hydroc hlorothiazide (HYZAAR) 50-12.5 MG TabletIndicatio ns:Hypertension Take 1 Tablet by mouth daily. Indications: High Blood Pressure 90 Tablet 05/12/20 025 Discontinu ed(Therapy completed) Active Problems Problem Noted Date Diagnosed Date Colon polyp 04/07/2025 Impacted cerumen of both ears 04/07/2025 Otogenic otalgia of right ear 04/07/2025 TMJ (temporomandibular joint disorder) Diabetes mellitus 12/05/2024 Primary hypertension 12/05/2024 Hypothyroidism 12/05/2024 Hyperlipidemia 12/05/2024 Depression 12/05/2024 Encounters Date Type Department Care Team Description 05/25/2025 2:20 PM PHOTOGRAMMETRIC SURVEYOR Clinical Support [place] [address] [place] [address] JUANITA-inhibitor cough (Primary Dx) Discharge Disposition: Discharged to home or Selfcare 05/25/2025 Travel 05/25/2025 MyChart RX Renewal [facility] [place] [address] [place] [phone] Rachel Liu APRN, HOSPITAL ADMISSIONS CLERK Medication Renewal Reviewed 05/18/2025 [facility]phone [facility] [address] [place] [phone] Rachel Liu APRN, HOSPITAL ADMISSIONS CLERK Nurse visit needed for BP Check 05/14/2025 MyChart RX Renewal [facility] [address] [place] [address] Rachel Liu, YURY, HOSPITAL ADMISSIONS CLERK Medication Renewal Declined 05/13/2025 MyChart RX Renewal [facility] [address] [place] [address] Rachel Liu, ROAD TESTER, HOSPITAL ADMISSIONS CLERK Medication Renewal Reviewed 05/08/2025 Telephone [facility] [address] [place] [address] Rachel Liu, YURY, HOSPITAL ADMISSIONS CLERK 05/07/2025 3:30 PM CDT Office Visit [facility] [address] [place] [address] Rachel Liu, ROAD TESTER, HOSPITAL ADMISSIONS CLERK Primary hypertension (Primary Dx); Hypothyroidism, unspecified type; Hyperlipidemia, unspecified hyperlipidemia type Discharge Disposition: Discharged to home or Selfcare 05/04/2025 3:00 PM CDT - 05/04/2025 7:26 PM CDT Emergency [facility] [address] [place] [address] Wagner Ovalles, DIONTE Vertigo Discharge Disposition: Discharged to home or Selfcare 05/04/2025 1:50 PM CDT Urgent Care Visit [facility] [address] [place] [address] Rob Marie, DIONTE Dizziness (Primary Dx) Discharge Disposition: Discharged to home or Selfcare 05/04/2025 Travel 05/04/2025 MyChart RX Renewal [facility] [address] [place] [address] Rachel Liu, ROAD TESTER, HOSPITAL ADMISSIONS CLERK Medication Renewal Declined 05/02/2025 Telephone [facility] [place] [facility] [place] [address] [place] [address] Katerin Vasquez APRN, YONATAN Medication Management 04/29/2025 4:45 PM CDT Urgent Care Visit [facility] [address] [place] [address] Fang Jenkins APRN, HOSPITAL ADMISSIONS CLERK Bacterial lower respiratory infection (Primary Dx); Type 2 diabetes mellitus without complication, without long-term current use of insulin; Hyperlipidemia, unspecified hyperlipidemia type Discharge Disposition: Discharged to home or Selfcare 04/29/2025 Travel 04/17/2025 MyChart RX Renewal [place] [address] [place] [address] Rachel Liu APRN, HOSPITAL ADMISSIONS CLERK Medication Renewal Declined 04/07/2025 1:00 PM CDT Office Visit [place] [address] [place] [address] Rachel Liu APRN, HOSPITAL ADMISSIONS CLERK Change in consistency of stool (Primary Dx); Impacted cerumen of left ear; Trigger middle finger of left hand; Epistaxis; Encounter for immunization; Type 2 diabetes mellitus without complication, without long-term current use of insulin; Primary hypertension; Hypothyroidism, unspecified type; Pure hypercholesterolemia Discharge Disposition: Discharged to home or Selfcare 04/05/2025 Travel 03/31/2025 9:10 AM CDT Lab [place] [address] [place] [address] Primary hypertension; Hypothyroidism, unspecified type; Type 2 diabetes mellitus with other specified complication, without long-term current use of insulin Discharge Disposition: Discharged to home or Selfcare 03/31/2025 Results Follow-Up [place] [address] [place] [address] Rachel Liu APRN, HOSPITAL ADMISSIONS CLERK LIPID PANEL, CMP (COMPREHENSIVE METABOLIC PANEL), THYROID STIMULATING HORMONE (TSH), Additional followed-up results: 2 03/31/2025 Travel 03/30/[address] [facility] [place] [address] Rachel Liu APRN, HOSPITAL ADMISSIONS CLERK 03/29/2025 MyChart RX Renewal [facility] [place] [address] [place] [address] Rachel Liu, YURY, HOSPITAL ADMISSIONS CLERK Medication Renewal Declined 03/22/2025 MyChart RX Renewal [facility] [place] [address] [place] [address] Rachel Liu, YURY, HOSPITAL ADMISSIONS CLERK Medication Renewal Reviewed 03/17/[address] [facility] [place] [address] [place] [address] Rachel Liu, YURY, HOSPITAL ADMISSIONS CLERK Medication Refill 03/06/2025 MyChart RX Renewal [facility] [place] [address] [place] [address] Rachel Liu, YURY, HOSPITAL ADMISSIONS CLERK Medication Renewal Reviewed 03/06/[address] [facility] [place] [address] [place] [address] Rachel Liu, YURY, HOSPITAL ADMISSIONS CLERK Medication Refill 02/23/[address] [facility] [place] [address] [place] [address] Rachel Liu, YURY, HOSPITAL ADMISSIONS CLERK Medication Refill 02/23/[address] [facility] [place] [address] Rachel Liu, ROAD TESTER, HOSPITAL ADMISSIONS CLERK Medication Refill 02/23/2025 MyChart RX Renewal [facility] [place] [address] [place] [address] [address] Liu, [address] TESTER, HOSPITAL ADMISSIONS CLERK Medication Renewal Declined from Last 3 Months Immunizations Immunization Administration Dates Next Due Influenza Vaccine, Quadrivalent, PF 07/25/2023 Influenza, Injectable, Quadrivalent 04/23,05/24/2021,04/19/2020,05/09,05/23/2018 Influenza, Trivalent, Adjuvanted, PF 04/07/2025 Influenza,Split Virus,Trivalent,Injectable,PF 05/23/2024,06/02/2017 Pneumococcal Vaccine - 13 Valent 10/04/2018 Pneumococcal conjugate PCV20 , polysaccharide [id number] conjugate, adjuvant, PF 04/07/2025 TDAP Vaccine 03/04/2017 Zoster Vaccine Recombinant 12/18/2023,08/08/2023 Family History Medical History Relation Name Comments No Known Problems Brother 1 Alcohol Abuse Brother 2 Heart Attack Brother 3 Escobar Has 4 stents. H eart problems stem from his father. Heart Surgery Brother 3 Escobar No Known Problems Father Diabetes Mother Toribio Thyroid Disease Mother Toribio Goiter Relation Name Status Comments Brother 1 Alive Brother 2 Alive Brother 3 Escobar Alive Father Mother Toribio Social History Tobacco Use Types Packs/Day Years Used Date Smoking Tobacco: Former Cigarettes 1.5 20 0 12/06/1977 - 12/06/1997 Smokeless Tobacco: Never Tobacco Cessation:Counseling Given: No Alcohol Use Standard Drinks/Week Comments Yes 2 (1 standard drink = 0.6 oz pur e alcohol) Rare [facility] Utilities Answer Date Recorded In the past 12 months has [employer], oil, or water [employer] threatened to shut off services in your home? No 12/04/2024 Social Connection and Isolation Panel Answer Date Recorded In a typical week, how many times do you talk on the phone with family, friends, or neighbors? Three times a week 12/04/2024 How often do you get togethe r with friends or relatives? Once a week 12/04/2024 How often do you attend [facility] or anabaptist services? Never 12/04/2024 Do you belong to any clubs o r organizations such as rastafarian groups, unions, fraternal or athletic groups, or [...] Total Score - Questions 1-9 0 03/23 [facility] - Occupational Stress Questionnaire Answer Date Recorded [...] any time in the past 12 m [facility], were you homeless or living in a group home (including now)? 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 Not on file Not on angie e Last Filed Vital Signs Vital Sign Reading Time Taken Comments Blood Pressure 136/72 05/25/2025 2:22 PM PHOTOGRAMMETRIC SURVEYOR Pulse 78 05/25/2025 2:22 PM PHOTOGRAMMETRIC SURVEYOR Temperature 36.9 C (98.4 F) 05/07/2025 3:47 PM CDT Respiratory Rate 18 05/25/2025 2:22 PM PHOTOGRAMMETRIC SURVEYOR Oxygen Saturation 97% 05/25/2025 2:22 PM PHOTOGRAMMETRIC SURVEYOR Inhaled Oxygen Concentration - - Weight 144.7 kg (319 lb 1.6 oz) 05/07/2025 3:47 PM CDT Height 172.7 cm (5' 8) 05/07/2025 3:47 PM CDT Body Mass Index 48.52 05/07/2025 3:47 PM CDT Plan of Treatment Upcoming Encounters Date Type Department Care Team (Late st Contact Info) Description 06/05/2025 4:00 PM PHOTOGRAMMETRIC SURVEYOR Office Visit [facility] [place] [address] [place] [address] Rachel Liu APRN, HOSPITAL ADMISSIONS CLERK [address] [place] [address] 07/31/2025 8:40 AM PHOTOGRAMMETRIC SURVEYOR Lab [facility] [place] [facility] [place] [address] [place] [phone] 08/07/2025 1:30 PM PHOTOGRAMMETRIC SURVEYOR Office Visit [facility] - [place] [address] [place] [address] [address] Liu, [address]AD TESTER, HOSPITAL ADMISSIONS CLERK [address] [place] [address] Health Maintenance Due Date Last Done Comments Hepatitis C Virus (HCV) Screening 1960 Cologuard 2004 Immunochemical Fecal Occult Blood 2004 Respiratory Syncytial Virus (RSV) Immunization (Adult) (1 - Risk 50-74 years 1-dose series) 2009 SARS-COV-2 Immunization ( season) 2025 06/01/2021, 11/25/2020, 11/04/2020 Diabetes: Hemoglobin A1c 09/28/2025 03/31/2025, 11/20 Mammogram 11/24/2025 11/24/2024, 11/24/2024, 11/24/2024, Additional history exists Diabetes: Eye Exam 01/26/2026 01/26/2025 Diabetes: Foot Exam 04/07/2026 04/07/2025, 04/07/2025, 04/07/2025 Diabetes: Nephropathy Screening 05/04/2026 05/04/2025, 03/31/2025, 12/08/2024, Additional history exists DEXA Bone Density 12/05/2026 01/11/2022, 01/11/2022 Postponed from 01/12/2024 (Patient Temporarily Declines) Td Immunization Every 10 Years (Adults With 1 Tdap) 03/04/2027 03/04/2017 Colonoscopy 06/28/2031 06/28/2021, 06/28/2021, 12/02/2015 Colorectal Cancer Screening 06/28/2031 DTaP/Tdap/Td Immunization Discontinued 03/04/2017 TdaP Immunization Discontinued 03/04/2017 Zoster Immunization Completed 12/18/2023, Influenza Immunization Completed 5, 05/23/2024, 07/25/2023, Additional history exists Pneumococcal Immunization (50+ years) Completed 04/07/2025, 10/04/2018 Pneumococcal Immunization Combined Discontinued 04/07/2025, 10/04/2018 Hepatitis B Immunization Aged Out No longer eligible based on patient's age to complete this topic Human Papillomavirus (HPV) Immunization Aged Out No longer eligible based on patient's age to complete this topic Meningococcal Immunization (ACWY) Aged Out No longer eligible based on patient's age to complete this topic Rotavirus Immunization Aged Out No lo nger eligible based on patient's age to complete this topic Goals Goal Patient Goal Type Associated Problems Recent Progress Patient-Stated? Author Help patient manage hypertension Care Plan [facility] HYPERTENSION CONCERN (PATIENT NOT ON HIGH BLOOD PRESSURE MEDICATIONS) No Jose E Mcgee, supply chain tech Procedure Name Priority Date/Time Associated Diagnosis Comments URINALYSIS REFLEX IF INDICATED BY ABNORMAL RESULTS STAT 05/04/2025 5:[address] HEAD OR BRAIN WO CONTRAST Stat with Interpretation 05/04/2025 5:22 PM CDT GOLD TOP TUBE STAT 05/04/2025 4:48 PM CDT BLUE TOP TUBE STAT 05/04/2025 4:48 PM CDT CBC WITH AUTO DIFFERENTIAL STAT 05/04/2025 4:48 PM CDT TROPONIN I, HIGH SENSITIVITY (HSTRP) STAT 05/04/2025 4:48 PM CDT MAGNESIUM (MG) STAT 05/04/2025 4:48 PM CDT LIPASE STAT 05/04/2025 4:48 PM CDT CMP (COMPREHENSIVE METABOLIC PANEL) STAT 05/04/2025 4:48 PM CDT COMPLETE BLOOD COUNT (CBC) WITH DIFF STAT 05/04/2025 4:48 PM CDT RSV,SARS-COV-2,INF [place]ZA A&B BY PCR STAT 05/04/2025 4:14 PM CDT XR CHEST 2 VIEWS STAT 05/04/2025 3:32 PM CDT EKG 12 LEAD STAT 05/04/2025 3:13 PM CDT EKG SCAN 05/04/2025 12:[address] - HEAD/NECK 05/04/2025 12:00 AM CDT REMOVE IMPACTED EAR WAX IRRIGATION ONLY LT Routine 04/07/2025 1:00 PM CDT Impacted cerumen of left ear CBC WITH AUTO DIFFERENTIAL Routine 03/31/2025 9:11 AM CDT Primary hypertension HEMOGLOBIN A1C W/ ESTIMATED GLUCOSE Routine 03/31/2025 9:11 AM CDT Type 2 diabetes mellitus with other specified complication, without long-term current use of insulin THYROID STIMULATING HORMONE (TSH) Routine 03/31/2025 9:11 AM CDT Primary hypertension Hypothyroidism, unspecified type COMPLETE BLOOD COUNT (CBC) WITH DIFF Routine 03/31/2025 9:11 AM CDT Primary hypertension CMP (COMPREHENSIVE METABOLIC PANEL) Routine 03/31/2025 9:11 AM CDT Primary hypertension LIPID PANEL Routine 03/31/2025 9:11 AM CDT Primary hypertension HM DILATED EYE EXAM 01/26/2025 12:00 AM CDT MAMMOGRAM BILATERAL GENERIC 11/24/2024 12:00 AM CDT BONE DENSITY GENERIC 01/11/2022 12:00 AM CDT HM COLONOSCOPY 06/28/2021 12:00 AM PHOTOGRAMMETRIC SURVEYOR from Last 3 Months or Most Recently Relevant to Health Maintenance Results * (ABNORMAL) Urinalysis w/ Reflex (05/04/2025 5:33 PM CDT) SPECIFIC GRAVITY 1.015 1.003 - 1.030 05/04/2025 6:29 PM CDT [facility] URINE PH 6.0 5.0 - 9.0 05/04/2025 6:29 PM CDT [facility] WBC ESTERASE 25 /ul(A) Negative 05/04/2025 6:29 PM CDT [facility] NITRITE Negative Negative 05/04/2025 6:29 PM CDT [facility] PROTEIN, RANDOM URINE 15 mg/dL(A) Negative 05/04/2025 6:29 PM CDT [facility] URINE GLUCOSE, QUAL Negative Negative 05/04/2025 6:29 PM CDT [facility] URINE KETONES Negative Negative 05/04/2025 6:29 PM CDT [facility] UROBILINOGEN Normal Normal mg/dL 05/04/2025 6:29 PM CDT [facility] URINE BLOOD 10 /uL(A) Negative fadi/ul 05/04/2025 6:29 PM CDT [facility] URINALYSIS COLOR Yellow 05/04/20 6:29 PM CDT [facility] URINALYSIS CLARITY Slightly Cloudy 05/04/2025 6:29 PM CDT [facility] WBC (Urine) 0-5 Negative, 0-5 /hpf 05/04/2025 6:29 PM CDT [facility] URINE RBC'S 3-5(A) Negative, 0-2 /hpf 05/04/2025 6:29 PM CDT [facility] EPITHELIAL CELLS Small amount /lpf 2024 6:29 PM CDT [facility] BACTERIA, URINE Few(A) Negative /hpf 05/04/2025 6:29 PM CDT [facility] Urine URINE SPECIMEN OBTAINED BY CLEAN CATCH PROCEDURE / Unknown Non-Phlebotomy Collection / Unknown 05/04/2025 5:33 PM CDT 05/04/2025 5:53 PM CDT us Wagner Ovalles PAC URINE ORDERABLES Fin al Result [facility] [place] [address] * CT HEAD OR BRAIN WO CONTRAST (05/04/2025 5:22 PM CDT) Anatomical Region Laterality Modality Head N/A Computed Tomogra phy 05/04/2025 5:22 PM CDT Impressions 05/04/2025 8:31 PM CDT IMPRESSION: 1. No acute intracranial abnormality by CT criteria. Chronic findings as above. The preliminary report and any related communication were provided by [facility]'s After Hours service, as documented in the medical record. Narrative 05/04/2025 8:31 PM CDT DICTATING PHYSICIAN: Avery Fontanez D.O. EXAM: CT HEAD OR BRAIN WO CONTRAST, 05/04/2025 5:22 PM COMPARISON: None HISTORY: Dizziness, persistent/recurrent, cardiac or vascular cause suspected, Dizziness with n/v x 5 days PROCEDURE: Utilizing 2.5 mm collimation in the posterior fossa and 2.5 mm collimation in the supratentorial compartment, contiguous axial tomographic images were obtained from the skullbase to the cranial vertex. Dose reduction technique(s) utilized. NSK=[id number] FINDINGS: No acute intracranial hemorrhage. There is no visualized mass, mass-effect, midline shift or abnormal extra-axial fluid collections. There is no CT evidence of acute infarct, although MRI has a higher sensitivity and specificity for acute and hyperacute ischemia. The wynn-white matter differentiation is preserved. There is patchy, low attenuation in the periventricular, deep and subcortical white matter which is likely sequelae of chronic small vessel ischemic change. The visualized brainstem and cerebellum are normal. The ventricles are proportionally enlarged amount of mild generalized cerebral and cerebellar volume loss. The basal cisterns are patent. There is atherosclerotic calcification of the intracranial internal carotid and vertebral arteries. There are no destructive bone lesions or calvarial fracture. The visualized paranasal sinuses, middle ear cavities and mastoid air cells are well aerated. There is no abnormality in the visualized portions of the orbits and globes. Procedure Note Aevry Fontanez, - 05/04/2025 DICTATING PHYSICIAN: Avery Fontanez D.O. EXAM: CT HEAD OR BRAIN WO CONTRAST, 05/04/2025 5:22 PM COMPARISON: None HISTORY: Dizziness, persistent/recurrent, cardiac or vascular causesuspected, Dizziness with n/v x 5 days PROCEDURE: Utilizing 2.5 mm collimation in the posterior fossa and 2.5 mmcollimation in the supratentorial compartment, contiguous axialtomographic images were obtained from the skullbase to the cranial vertex.Dose reduction technique(s) utilized. QIC=[id number] FINDINGS: No acute intracranial hemorrhage. There is no visualized mass,mass-effect, midline shift or abnormal extra-axial fluid collections.There is no CT evidence of acute infarct, although MRI has a highersensitivity and specificity for acute and hyperacute ischemia. Thegray-white matter differentiation is preserved. There is patchy, lowattenuation in the periventricular, deep and subcortical white matterwhich is likely sequelae of chronic small vessel ischemic change. Thevisualized brainstem and cerebellum are normal. The ventricles areproportionally enlarged amount of mild generalized cerebral and cerebellarvolume loss. The basal cisterns are patent. There is atheroscleroticcalcification of the intracranial internal carotid and vertebralarteries. There are no destructive bone lesions or calvarial fracture. Thevisualized paranasal sinuses, middle ear cavities and mastoid air cellsare well aerated. There is no abnormality in the visualized portions ofthe orbits and globes. IMPRESSION: 1. No acute intracranial abnormality by CT criteria. Chronic findings asabove. The preliminary report and any related communication were provided by[facility]'s After Hours service, as documented in the medical record. Wagner Ovalles PAC IMG CT ORDERABLES Fi nal Result * TROPONIN I, HIGH SENSITIVITY (HSTRP) (05/04/2025 4:48 PM CDT) TROPONIN I, HIGH SENSITIVITY- [place] <2.7 <=14.0 ng/L 05/04/2025 5:24 PM CDT [facility] Comment: High-sensitivity troponin I results are reported in ng/L making the result appear to be 1,000 times higher than the contemporary troponin I value which is reported in ng/ml. Results from [place]. Blood Venipuncture / Unknown 05/04/2025 4:48 PM CDT 05/04/2025 4:52 PM CDT Wagner Ovalles PAC CHEMISTRY ORDERABLES Final Result Performing Organization Address [facility] Co de Phone Number [facility] [address] [place] [address] * Gold Top Tube (05/04/2025 4:48 PM CDT) Blood No Phlebotomy Charged / Unknown 05/04/2025 4:48 PM CDT 05/04/2025 4:54 PM CDT Britt Reza MD PhD CHEMISTRY ORDERABLES Final R esult Performing Organization Address [facility] [facility] de Phone Number [facility] [address] [place] [address] * Blue Top Tube (05/04/2025 4:48 PM CDT) Blood No Phlebotomy Charged / Unknown 05/04/2025 4:48 PM CDT 05/04/2025 4:54 PM CDT Britt Reza MD PhD HEMATOLOGY ORDERABLES Final Result Performing Organization Address [facility] de Phone Number [facility] [address] [place] [address] * (ABNORMAL) CBC with Auto Differential (05/04/2025 4:48 PM CDT) Only the most recent of2 resultswithin the time period is included. WBC 13.05(H) 4.00 - 12.00 10(3)/mcL 05/04/2025 4:58 PM CDT [facility] RBC 4.42 3.80 - 5.30 10(6)/mcL 05/04/2025 4:58 PM CDT [facility] HEMOGLOBIN (HGB) 12.5 12.0 - 15.8 g/dL 05/04/2025 4:58 PM CDT [facility] HEMATOCRIT (HCT) 39.0 36.0 - 47.0 % 05/04/2025 4:58 PM CDT [facility] MCV 88.2 82.0 - 96.0 fL 05/04/2025 4:58 PM CDT [facility] MCH 28.3 26.0 - 34.0 pg 05/04/2025 4:58 PM CDT [facility] MCHC 32.1 31.0 - 36.0 g/dL 05/04/2025 4:58 PM CDT [facility] PLATELET COUNT 179 140 - 440 10(3)/mcL 05/04/2025 4:58 PM CDT [facility] RDW 13.9 11.8 - 15.5 % 05/04/2025 4:58 PM CDT [facility] MPV 8.9(L) 9.7 - 12.4 fL 05/04/2025 4:58 PM CDT [facility] NEUTROPHILS 82.2(H) 47.0 - 73.0 % 05/04/2025 4:58 PM CDT [facility] LYMPHOCYTES 9.9(L) 18.0 - 42.0 % 05/04/2025 4:58 PM CDT [facility] MONOCYTES 5.6 4.0 - 12.0 % 05/04/2025 4:58 PM CDT [facility] EOSINOPHILS 1.1 0.0 - 5.0 % 05/04/2025 4:58 PM CDT [facility] BASOPHILS 0.6 0.0 - 1.0 % 05/04/2025 4:58 PM CDT [facility] IMMATURE GRANULOCYTE 0.6(H) 0.0 - 0.4 % 05/04/2025 4:58 PM CDT [facility] Comment:Immature Granulocyte s includes Metamyelocytes, Myelocytes, and Promyelocytes. ABSOLUTE NEUTROPHILS 10.72(H) 1.60 - 7.70 10(3)/mcL 05/04/2025 4:58 PM CDT [facility] ABSOLUTE LYMPHOCYTES 1.29(L) 1.30 - 3.20 10(3)/mcL 05/04/2025 4:58 PM CDT [facility] ABSOLUTE MONOCYTES 0.73 0.20 - 1.00 10(3)/mcL 05/04/2025 4:58 PM CDT [facility] ABSOLUTE EOSINOPHIL 0.15 0.00 - 0.40 10(3)/mcL 05/04/2025 4:58 PM CDT [facility] ABSOLUTE BASOPHILS 0.08 0.00 - 0.10 10(3)/mcL 05/04/2025 4:58 PM CDT [facility] ABSOLUTE IMMATURE GRANULOCYTE 0.08(H) 0.00 - 0.03 10 (3) mcL. 05/04/2025 4:58 PM CDT [facility] NRBC PER 100 WBC 0 05/04/20 4:58 PM CDT [facility] Blood Venipuncture / Unknown 05/04/2025 4:48 PM CDT 05/04/2025 4:52 PM CDT Wagner Ovalles PAC HEMATOLOGY ORDERABLE S Final Result [facility] [address] [place] [address] * Magnesium (05/04/2025 4:48 PM CDT) MAGNESIUM 1.9 1.6 - 2.6 mg/dL 05/04/2025 5:19 PM CDT [facility] Blood Venipuncture / Unknown 05/04/2025 4:48 PM CDT 05/04/2025 4:52 PM CDT Wagner Ovalles PAC CHEMISTRY ORDERABLES Final Result [facility] [address] [place] [address] * Lipase (05/04/2025 4:48 PM CDT) LIPASE 18 8 - 78 U/L 05/04/2025 5:19 PM CDT [facility] Blood Venipuncture / Unknown 05/04/2025 4:48 PM CDT 05/04/2025 4:52 PM CDT Wagner Ovalles PAC CHEMISTRY ORDERABLES Final Result [facility] [address] [place] [address] * (ABNORMAL) CMP (05/04/2025 4:48 PM CDT) Only the most recent of2 resultswithin the time period is included. SODIUM 140 136 - 145 mmol/L 05/04/2025 5:19 PM CDT [facility] POTASSIUM 4.1 3.5 - 5.1 mmol/L 05/04/2025 5:19 PM CDT [facility] CHLORIDE 105 98 - 107 mmol/L 05/04/2025 5:19 PM CDT [facility] CO2, VENOUS 26 22 - 30 mmol/L 05/04/2025 5:19 PM CDT [facility] ANION GAP 13.1 <18.0 mmol/L 05/04/2025 5:19 PM CDT [facility] GLUCOSE 103(H) 70 - 99 mg/dL 05/04/2025 5:19 PM CDT [facility] BUN 17 10 - 20 mg/dL 05/04/2025 5:19 PM CDT [facility] CREATININE, BLOOD 0.78 0.60 - 1.00 mg/dL 05/04/2025 5:19 PM CDT [facility] BUN/CREATININE RATIO 22(H) 12 - 20 ratio 05/04/2025 5:19 PM CDT [facility] TOTAL PROTEIN 7.0 6.0 - 8.0 g/dL 05/04/2025 5:19 PM [facility] ALBUMIN 4.3 3.5 - 5.0 g/dL 05/04/2025 5:19 PM [facility] A/G RATIO 1.6 1.0 - 2.2 05/04/2025 5:19 PM [facility] CALCIUM 9.4 8.7 - 10.5 mg/dL 05/04/2025 5:19 PM T [facility] T BILI 0.5 0.2 - 1.2 mg/dL 05/04/2025 5:19 PM [facility] SGOT (AST) 18 <43 U/L 05/04/2025 5:19 PM [facility] SGPT (ALT) 18 <56 U/L 05/04/2025 5:19 PM [facility] ALKALINE PHOSPHATASE 85 40 - 150 U/L 05/04/2025 5:19 PM [facility] GFR, ESTIMATED >60 >=60 05/04/2025 5:19 PM [facility] Comment: Creatinine Clearance is the preferred criteria for selecting drug dose adjustments in renally impaired patients. The GFR is provided as additional pertinent clinical information. GFR is reported in mL/min/1.73 sq m. Calculation based on the 2020 Chronic Kidney Disease Epidemiology Collaboration (CKD-EPI) equation refit without adjustment for race. GFR, EST. >60 >=60 5:19 PM [facility] Comment: Creatinine Clearance is the preferred criteria for selecting drug dose adjustments in renally impaired patients. The GFR is provided as additional pertinent clinical information. GFR is reported in mL/min/1.73 sq m. Calculation based on the 2009 Chronic Kidney Disease Epidemiology Collaboration (CKD-EPI). GFR, EST. NONAFRICAN >60 >=60 05/04/2025 5:19 PM [facility] Comment: Creatinine Clearance is the preferred criteria for selecting drug dose adjustments in renally impaired patients. The GFR is provided as additional pertinent clinical information. GFR is reported in mL/min/1.73 sq m. Calculation based on the 2009 Chronic Kidney Disease Epidemiology Collaboration (CKD-EPI). Blood Venipuncture / Unknown 05/04/2025 4:48 PM CDT 05/04/2025 4:52 PM CDT Wagner Ovalles PAC CHEMISTRY ORDERABLES Final Result Performing Organization Address City/[facility]/ZIP Co de Phone Number [facility] [address] [place] [address] * RSV,SARS-COV-2,INFLUENZA A&B BY PCR (05/04/2025 4:14 PM CDT) FLU A Negative Negative, Error 05/04/2025 5:09 PM CDT [facility] FLU B Negative Negative 05/04/2025 5:09 PM CDT [facility] RESP SYNC VIRUS Negative Negative 5:09 PM CDT [facility] SARSCOV2 NOT DETECTED (Reference Range for this test is Not Detected) 05/04/2025 5:09 PM CDT [facility] Comment:This test was perfor med by a Reverse Story Writer PCR Method. Nasal NASOPHARYNGEAL SWAB / Unknown Non-Phlebotomy Collection / Unknown 05/04/2025 4:14 PM CDT 05/04/2025 4:30 PM CDT Wagner Ovalles PAC MICROBIOLOGY - GENER AL ORDERABLES Final Result Performing Organization Address City/[facility]/ZIP Co de Phone Number [facility] [address] [place] [address] * XR CHEST 2 VIEWS (05/04/2025 3:32 PM CDT) Anatomical Region Laterality Modality Chest N/A Digital Radiogra phy 05/04/2025 3:32 PM CDT Impressions 05/04/2025 3:45 PM CDT IMPRESSION: No acute cardiopulmonary findings. Narrative 05/04/2025 3:45 PM CDT EXAM: XR CHEST 2 VIEWS 05/04/2025 3:32 PM Patient : 1960 Age: 64 years Gender: Female INDICATION: chest tightness, shortness of breath, wheezing since 03/23. pt report for last 2 days ahe been nausea and dizzy. pt had elevated BP in triage today. COMPARISON: None NUMBER OF IMAGES \ views: 2 FINDINGS: Lines/tubes/devices: None. Cardiac silhouette: The cardiac silhouette is within normal limits for size. Lungs: No focal consolidation. Pleura: No effusion or pneumothorax. Osseous structures/soft tissues: Unremarkable. Upper abdomen: Unremarkable. Procedure Note Price An MD - 05/04/2025 EXAM: XR CHEST 2 VIEWS 05/04/2025 3:32 PM Patient : 1960 Age: 64 years Gender: Female INDICATION: chest tightness, shortness of breath, wheezing since 03/23. ptreport for last 2 days ahe been nausea and dizzy. pt had elevated BP intriage today. COMPARISON: None NUMBER OF IMAGES \ views: 2 FINDINGS: Lines/tubes/devices: None. Cardiac silhouette: The cardiac silhouette is within normal limits forsize. Lungs: No focal consolidation. Pleura: No effusion or pneumothorax. Osseous structures/soft tissues: Unremarkable. Upper abdomen: Unremarkable. IMPRESSION: No acute cardiopulmonary findings. Wagner Ovalles PAC IMG DIAGNOSTIC ORDER CONRAD Final Result * EKG 12 LEAD (05/04/2025 3:13 PM CDT) Ventricular Rate 69 BPM EXTERNAL EKG Atrial Rate 69 BPM EXTERNAL EKG P-R Interval 204 ms EXTERNAL EKG QRS Duration 88 ms EXTERNAL EKG Q-T Duration 410 ms EXTERNAL EKG QTC CALCULATION 439 ms EXTERNAL EKG P Ava 24 degrees EXTERNAL EKG R Ava -7 degrees EXTERNAL EKG T Ava 55 degrees EXTERNAL EKG 05/04/2025 3:13 PM CDT Impressions EXTERNAL EKG - 05/07/2025 8:49 PM CDT Normal sinus rhythm Normal ECG No previous ECGs available Confirmed by NANDINI BAE ([id number]) on 05/07/2025 8:49:36 PM Narrative Procedure Note Nanidni Bae MD - 05/07/2025 IMPRESSION: Normal sinus rhythm Normal ECG No previous ECGs available Confirmed by NANDINI BAE ([id number]) on 05/07/2025 8:49:36 PM us Miguel Marinelli DO IMG ECG ORDERABLES April l Result Performing Organization Address [facility] de Phone Number EXTERNAL EKG * EKG SCAN (05/04/2025 12:00 AM CDT) 05/04/2025 us Provider Scan IMG ECG ORDERABLES Final Result Performing Organization Address City/[facility] Co de Phone Number RESULTING AGENCY * CT - HEAD/NECK (05/04/2025 12:00 AM CDT) 05/04/2025 us Provider Scan IMG CT ORDERABLES Final Result Performing Organization Address [facility] de Phone Number SCAN * REMOVE IMPACTED EAR WAX IRRIGATION ONLY LT (04/07/2025 1:00 PM CDT) Narrative Taryn Dueñas RMA - 04/07/2025 1:00 PM CDT Taryn Dueñas RMA 04/07/2025 3:27 PM Leanna Glover presents for removal of impacted cerumen per order of - Rachel Liu APRN,HOSPITAL ADMISSIONS CLERK dated 04/07/25. Ear Assessment Findings cerumen. Impacted wax completely successful removed from the left ear canal(s) via irrigation only. Warm water irrigated to left Patient's tolerated procedure without report of any discomfort expressed during the procedure: Yes Patient education provided on AVS, including teachback for proper ear care and the importance of avoiding self-treatment with cotton swabs and other objects. Rachel Liu APRN, CNP PROCEDURE/MINOR SURGICAL O RDERABLES Final Result * (ABNORMAL) HEMOGLOBIN A1C W/ ESTIMATED GLUCOSE (03/31/2025 9:11 AM CDT) HGB-A1C 6.3(H) 4.0 - 6.0 % 03/31/2025 1:26 PM CDT [facility] Est Average Glucose 134.1 mg/dL 03/31/2025 1:26 PM CDT [facility] Blood Venipuncture / Unknown 03/31/2025 9:11 AM CDT 03/31/2025 9:11 AM CDT Narrative [facility] - 03/31/2025 1:26 PM CDT HEMOGLOBIN A1C: DIABETIC PATIENTS: WELL-CONTROLLED: 6.2 - 7.0 INTERMEDIATE WELL-CONTROLLED: 7.0 - 9.0 POORLY-CONTROLLED: >9.0 Specimens containing greater than 5% of Hemoglobin F may result in lower than expected % HbA1C results. Rachel Liu APRN, CNP CHEMISTRY ORDERABLES Final Result [facility] [address] [place] [address] * THYROID STIMULATING HORMONE (TSH) (03/31/2025 9:11 AM CDT) TSH 1.742 0.300 - 5.000 mIU/L 03/31/2025 2:07 PM CDT [facility] Blood Venipuncture / Unknown 03/31/2025 9:11 AM CDT 03/31/2025 9:11 AM CDT Rachel Liu APRN, [place]ON[place]AN CHEMISTRY ORDERABLES Final Result [facility] [address] [place] [address] * LIPID PANEL (03/31/2025 9:11 AM CDT) CHOLESTEROL 136 <200 mg/dL 03/31/2025 1:58 PM CDT [facility] TRIGLYCERIDES 111 <150 mg/dL 03/31/2025 1:58 PM CDT [facility] HDL CHOLESTEROL 42 >40 mg/dL 1:58 PM CDT [facility] LDL 72 <130 mg/dL 03/31/2025 1:58 PM CDT [facility] VLDL 22 10 - 50 mg/dL 03/31/2025 1:58 PM CDT [facility] CHOL/HDL RATIO 3.2 0.0 - 4.4 03/31/2025 1:58 PM CDT [facility] NON-HDL CHOLESTEROL 94 <130 mg/dL 03/31/2025 1:58 PM CDT [facility] IS THE PATIENT REQUIRED TO BE FASTING? Yes 03/31/2025 1:58 PM CDT [facility] HAS THE PATIENT BEEN FASTING? Yes 03/31/2025 1:58 PM CDT [facility] Blood Venipuncture / Unknown 03/31/2025 9:11 AM CDT 03/31/2025 9:11 AM CDT us Rachel Liu ROAD TESTER, HOSPITAL ADMISSIONS CLERK CHEMISTRY ORDERABLES Final Result Performing Organization Address City/[facility]/ZIP Co de Phone Number [facility] [address] [place] [address] * HM DILATED EYE EXAM (01/26/2025 12:00 AM CDT) 01/26/2025 us Provider Scan PROCEDURE/MINOR SURGICAL ORDERAB LES Final Result SCAN * MAMMOGRAM BILATERAL GENERIC (11/24/2024 12:00 AM CDT) 11/24/2024 us Provider Scan IMG MAMMO ORDERABLES Final Resul t SCAN * BONE DENSITY GENERIC (01/11/2022 12:00 AM CDT) 01/11/2022 us Provider Scan IMG DEXA ORDERABLES Final Result SCAN * HM COLONOSCOPY (06/28/2021 12:00 AM PHOTOGRAMMETRIC SURVEYOR) 06/28/2021 us Provider Scan PROCEDURE/MINOR SURGICAL ORDERAB LES Final Result SCAN from Last 3 Months or Most Recently Relevant to Health Maintenance Additional Health Concerns Active Problems Noted Date Diagnosed Date [facility] HYPERTENSION CONCERN (P ATIENT NOT ON HIGH BLOOD PRESSURE MEDICATIONS) 05/25/[address] [place] [address] [place] [address] Care Teams Parts Counterperson Relationship Specialty Start Date End Date Rachel Liu, ROAD TESTER, HOSPITAL ADMISSIONS CLERK [address] [place] [address] PCP - General Certified Nurse Practitioner 12/05/24 Michael Velarde DO Consulting Physician Gastroenterology 12/02/15
== END 2025-05-26 10:57 | disposition home or self-care (01) ==
LOC: ANHBWCAUD 10:56
DX: H93.13 Tinnitus, bilateral (principal); H90.3 Sensorineural hearing loss, bilateral; H61.23 Impacted cerumen, bilateral
CPT/HCPCS: 92557; 92567